=== PATIENT | male | born 1975 | race Caucasian/White ===

== ENCOUNTER 2018-03-22 04:13 | Inpatient (IN) | payer BC, OTHER ==
[2018-03-22 04:34] VITALS: BMI 25.1
--- NOTE | 2018-03-22 04:34 | PDOC ---
History of Present Illness <Felisa Barker - Last Filed: 03/22/18 04:42> - History of Present Illness Initial Comments: 03/22/18 04:49 The patient is a 43 year old male with a history or Brugada's s/p defibrillator placement who presents for evaluation following a syncopal episode. The patient is accompanied by his who assists in providing the history. The patient's notes that the patient had 3 syncopal episodes this evening with head trauma while in the bathroom. She notes that the patient was unresponsive longer than normal prompting their presentation to the ED for evaluation. The patient notes that he was lightheaded at the time, but is denying that any of the events occurred, but notes he does not remember them. He otherwise denies fevers, chills, SOB, chest pain, nausea, vomiting, abdominal pain, or changes with urination or bowel movements. <Mitul Raygoza - Last Filed: 03/22/18 06:30> <Immanuel Vega - Last Filed: 03/22/18 08:10> - General Chief Complaint: Syncope/Near Syncope Stated Complaint: HEART PROBLEM Time Seen by Provider: 03/22/18 04:25 Past History <Felisa Barker - Last Filed: 03/22/18 04:42> - Suicide/Smoking/Psychosocial Hx Smoking Status: No Smoking History: Never smoked Have you smoked in the past 12 months: No Number of Cigarettes Smoked Daily: 0 Information on smoking cessation initiated: No Hx Alcohol Use: No Drug/Substance Use Hx: No Substance Use Type: Alcohol Hx Substance Use Treatment: No <Mitul Raygoza - Last Filed: 03/22/18 06:30> <Immanuel Vega - Last Filed: 03/22/18 08:10> - Past Medical History Allergies/Adverse Reactions: Allergies Allergy/AdvReac Type Severity Reaction Status Date / Time No Known Allergies Allergy Verified 03/22/18 04:29 Home Medications: Ambulatory Orders No Home Medications 0 dose .ROUTE UTDICT 01/16/13 Review of Systems - Review of Systems Comments:: 03/22/18 04:52 Constitutional: No fevers, chills, fatigue, malaise HEENT: No Rhinorrhea, nasal congestion, visual changes Cardiovascular: Syncope. No chest pain, palpitations, lightheadedness Respiratory: No Cough, SOB, Hemoptysis, Gastrointestinal: No Abdominal pain, Nausea, Vomiting, Constipation, Diarrhea, Melena Genitourinary: No Dysuria, Frequency, Urgency, Hesitancy, Hematuria, Flank pain Musculoskeletal: No Myalgia, arthralgia Skin: No rashes, itching, bruising, pallor Neurologic: No Headache, Dizziness, Numbness, Weakness, or Tingling Psychiatric: No Hallucinations. No SI or HI <Mitul Raygoza - Last Filed: 03/22/18 06:30> *Physical Exam - Vital Signs Last Vital Signs Temp Pulse Resp BP Pulse Ox 97.4 F L 71 18 102/65 100 03/22/18 04:29 03/22/18 04:29 03/22/18 04:29 03/22/18 04:29 03/22/18 04:29 <Felisa Barker - Last Filed: 03/22/18 04:42> - Vital Signs Last Vital Signs Temp Pulse Resp BP Pulse Ox 97.4 F L 71 18 102/65 100 03/22/18 04:29 03/22/18 04:29 03/22/18 04:29 03/22/18 04:29 03/22/18 04:29 - Physical Exam Comments: 03/22/18 04:52 General Appearance: Nourished. No Apparent Distress HEENT: EOMI, ELIAN. No Pharyngeal Erythema, Tonsillar Exudate, Tonsillar Erythema Neck: No Cervical Lymphadenopathy Respiratory/Chest: Lungs Clear, Normal Breath Sounds. No Crackles, Rales, Rhonchi, Wheezing Cardiovascular: Regular Rhythm, Regular Rate. No Murmur, Gallops, Rubs Gastrointestinal/Abdominal: Normal Bowel Sounds, Soft. 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 <Mitul Raygoza - Last Filed: 03/22/18 06:30> - Vital Signs Last Vital Signs Temp Pulse Resp BP Pulse Ox 97.4 F L 71 18 102/65 100 03/22/18 04:29 03/22/18 04:29 03/22/18 04:29 03/22/18 04:29 03/22/18 04:29 <SilviaNestormeño - Last Filed: 03/22/18 08:10> Heart Score/ECG Review #1 ECG reviewed & interpreted by me at: 04:53 ([facility] QRS) General ECG Interpretation: Sinus Rhythm, Normal Rate, No acute ischemic changes <Mitul Raygoza - Last Filed: 03/22/18 06:30> ED Treatment Course - LABORATORY CBC & Chemistry Diagram: 03/22/18 04:57 03/22/18 04:57 <Mitul Raygoza - Last Filed: 03/22/18 06:30> - LABORATORY CBC & Chemistry Diagram: 03/22/18 04:57 03/22/18 04:57 - ADDITIONAL ORDERS Additional order review: Laboratory Results 03/22/18 03/22/18 03/22/18 04:57 04:57 04:57 Sodium 136 Potassium 3.5 Chloride 98 Carbon Dioxide 29 Anion Gap 9 BUN 10 D Creatinine 0.9 Creat Clearance w eGFR > 60 Random Glucose 104 Calcium 8.6 Total Bilirubin 0.5 D AST 31 D ALT 44 D Alkaline Phosphatase 61 Creatine Kinase 167 Creatine Kinase Index 3.1 CK-MB (CK-2) 5.19 H Troponin I < 0.02 Total Protein 7.5 Albumin 4.1 Alcohol, Quantitative 22.9 H* 03/22/18 04:57 RBC 5.13 MCV 85.6 MCHC 34.0 RDW 12.9 MPV 8.2 Neutrophils % 55.8 Lymphocytes % 33.3 D Monocytes % 5.6 Eosinophils % 4.1 D Basophils % 1.2 <Immanuel Vega - Last Filed: 03/22/18 08:10> Medical Decision Making - Medical Decision Making 03/22/18 04:53 The patient is a 43 year old male with a history or Brugada's s/p defibrillator placement who presents for evaluation following a syncopal episode. Differential includes but is not limited to: Intracranial process, non-function defibrillator, acs, infectious, metabolic derangement. Given the patient's history and physical exam, we will obtain a cbc, cmp, troponin, ekg, chest plain film and head CT to evaluate further for possible etiologies. It is possible the patient's defibrillator is not functioning properly and the patient will likely require admission for interrogation and further syncope work up. 03/22/18 06:26 CBC, cmp, troponin are unremarkable. Chest plain film is unremarkable. Head CT is unremarkable as preliminarily read by our division operations manager radiologist. We believe the patient requires admission for further monitoring and management. <Mitul Raygoza - Last Filed: 03/22/18 06:30> *DC/Admit/Observation/Transfer <Felisa Barker - Last Filed: 03/22/18 04:42> <Mitul Raygoza - Last Filed: 03/22/18 06:30> <Immanuel Vega - Last Filed: 03/22/18 08:10> Diagnosis at time of Disposition: Syncope Qualifiers: Syncope type: unspecified Qualified Code(s): R55 - Syncope and collapse - Discharge Dispostion Condition at time of disposition: Stable - Referrals Referrals: Eugenia Dominguez [Primary Care Provider] - - Patient Instructions - Post Discharge Activity
--- NOTE | 2018-03-22 04:45 | PDOC ---
Attending Attestation - Resident Resident Name: Mitul Raygoza - ED Attending Attestation I have performed the following: I have examined & evaluated the patient, The case was reviewed & discussed with the resident, I agree w/resident's findings & plan - HPI HPI: 03/22/18 04:43 Pt comes with syncope today. Witnessed by . Pt denies that he injured self, and doesn't admit to syncope. - Physicial Exam PE: 03/22/18 04:44 Agree with resident exam - Medical Decision Making 03/22/18 04:45 Syncope workup. 03/22/18 05:04 Pt will be admitted and his defibrillator can be queried in the AM 03/22/18 05:49 Patient Name: TERRELL OLIVERA THIS IS A PRELIMINARY REPORT FROM [facility] DATE OF SERVICE: 2018-03-22 05:25:58 IMAGES: 141 EXAM: HEAD CT WITHOUT CONTRAST HISTORY: Trauma COMPARISON: None. FINDINGS: The ventricular system is midline and nondilated. The sulcal pattern is normal for the patient's age. There is no bleed, mass, extra-axial fluid collection or mass effect. No skull fracture or skull lesion is identified. The visualized paranasal sinuses and mastoid air cells are clear. IMPRESSION: Normal exam. 03/22/18 06:22 Pt refusing to stay in the ER. Wants to sign AMA. 03/23/18 02:06 Pt ended up agreeing to stay in the hospital and get his defibrillator interrogated. Pt will be signed out to the day team of the ER who will admit him to the hospitalists.
[2018-03-22 05:09] LABS: BASO % 1.2 % (0-2.0); EOS % 4.1 % (0-4.5); HEMATOCRIT 43.9 % (35.4-49); LYMPH % 33.3 % (8-40); MCH 29.1 pg (25.7-33.7); MEAN CELL VOLUME 85.6 fl (80-96); MEAN PLT VOLUME 8.2 fl (7.5-11.1); MONO % 5.6 % (3.8-10.2); NEUT % 55.8 % (42.8-82.8); PLATELET COUNT 203 K/MM3 (134-434); RBC 5.13 M/mm3 (4.00-5.60); RDW 12.9 % (11.9-15.9); WHITE BLOOD COUNT 5.4 K/mm3 (4.0-10.0)
[2018-03-22 05:31] LABS: ALBUMIN 4.1 g/dl (3.4-5.0); ANION GAP 9 (8-16); BLOOD UREA NITROGEN 10 mg/dL (7-18); CALCIUM 8.6 mg/dL (8.5-10.1); CHLORIDE 98 mmol/L (98-107); CO2 29 mmol/L (21-32); CREATININE 0.9 mg/dL (0.7-1.3); GLUCOSE,RANDOM 104 mg/dL (74-106); POTASSIUM 3.5 mmol/L (3.5-5.1); SGOT/AST 31 U/L (15-37); SGPT/ALT 44 U/L (12-78); SODIUM 136 mmol/L (136-145)
[2018-03-22 05:33] LABS: ALK PHOS 61 U/L (45-117); BILIRUBIN,TOTAL 0.5 mg/dL (0.2-1.0); TOT PROT 7.5 g/dl (6.4-8.2)
--- NOTE | 2018-03-22 07:21 | PDOC ---
*Physical Exam - Vital Signs Last Vital Signs Temp Pulse Resp BP Pulse Ox 97.4 F L 71 18 102/65 100 03/22/18 04:29 03/22/18 04:29 03/22/18 04:29 03/22/18 04:29 03/22/18 04:29 - Physical Exam General Appearance: Yes: Nourished Neck: positive: Trachea midline Respiratory/Chest: positive: Lungs Clear, Normal Breath Sounds Cardiovascular: positive: Regular Rhythm, Regular Rate, S1, S2 Gastrointestinal/Abdominal: positive: Normal Bowel Sounds Musculoskeletal: positive: Normal Inspection. negative: CVA Tenderness Extremity: positive: Normal Capillary Refill Integumentary: positive: Normal Color, Dry, Warm Neurologic: positive: bioinformatics programmer II-XII NML intact, Fully Oriented, Alert ED Treatment Course - LABORATORY CBC & Chemistry Diagram: 03/22/18 04:57 03/22/18 04:57 - ADDITIONAL ORDERS Additional order review: Laboratory Results 03/22/18 03/22/18 03/22/18 04:57 04:57 04:57 Sodium 136 Potassium 3.5 Chloride 98 Carbon Dioxide 29 Anion Gap 9 BUN 10 D Creatinine 0.9 Creat Clearance w eGFR > 60 Random Glucose 104 Calcium 8.6 Total Bilirubin 0.5 D AST 31 D ALT 44 D Alkaline Phosphatase 61 Creatine Kinase 167 Creatine Kinase Index 3.1 CK-MB (CK-2) 5.19 H Troponin I < 0.02 Total Protein 7.5 Albumin 4.1 Alcohol, Quantitative 22.9 H* 03/22/18 04:57 RBC 5.13 MCV 85.6 MCHC 34.0 RDW 12.9 MPV 8.2 Neutrophils % 55.8 Lymphocytes % 33.3 D Monocytes % 5.6 Eosinophils % 4.1 D Basophils % 1.2 Medical Decision Making - Medical Decision Making 03/22/18 07:18 pt signed out to me by dr. dove, assumed care of pt at 7am, 43 yo M with h/o pacemaker, brugada syndrome ( placed two years ago). here with c/o syncope x 2. was getting out of bed and syncopized. happened secondtime. reports etoh last night, states may be dehydrated. denies cp or palpitations. 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 on exam awake alert lungs clear bilaterally heart rrr nomrg. abd soft nt nd. skin warm and dry wwp. nuero moves all ext. alert oriented x 3 differential vasovagal dehydration, dysrhtymia, pacer malfunction p marc iv hydration. labs. will require admission for tele obs, interrogtion of pacer. *DC/Admit/Observation/Transfer Diagnosis at time of Disposition: Syncope Qualifiers: Syncope type: unspecified Qualified Code(s): R55 - Syncope and collapse - Discharge Dispostion Condition at time of disposition: Stable - Referrals Referrals: Eugenia Dominguez [Primary Care Provider] - - Patient Instructions - Post Discharge Activity
[2018-03-22] MEDS ORDERED: SODIUM CHLORIDE 0.9% 500 ML INFUS.BAG IV ONE (07:23)
--- NOTE | 2018-03-22 07:42 | PDOC ---
*Physical Exam - Vital Signs Last Vital Signs Temp Pulse Resp BP Pulse Ox 97.4 F L 71 18 102/65 100 03/22/18 04:29 03/22/18 04:29 03/22/18 04:29 03/22/18 04:29 03/22/18 04:29 ED Treatment Course - LABORATORY CBC & Chemistry Diagram: 03/22/18 04:57 03/22/18 04:57 - ADDITIONAL ORDERS Additional order review: Laboratory Results 03/22/18 03/22/18 03/22/18 04:57 04:57 04:57 Sodium 136 Potassium 3.5 Chloride 98 Carbon Dioxide 29 Anion Gap 9 BUN 10 D Creatinine 0.9 Creat Clearance w eGFR > 60 Random Glucose 104 Calcium 8.6 Total Bilirubin 0.5 D AST 31 D ALT 44 D Alkaline Phosphatase 61 Creatine Kinase 167 Creatine Kinase Index 3.1 CK-MB (CK-2) 5.19 H Troponin I < 0.02 Total Protein 7.5 Albumin 4.1 Alcohol, Quantitative 22.9 H* 03/22/18 04:57 RBC 5.13 MCV 85.6 MCHC 34.0 RDW 12.9 MPV 8.2 Neutrophils % 55.8 Lymphocytes % 33.3 D Monocytes % 5.6 Eosinophils % 4.1 D Basophils % 1.2 Medical Decision Making - Medical Decision Making 43 year old male signed out to me with known Brugada and defibrillator in place presenting after two syncopal episodes during which his was concerned for seizure like activity. No bowel/ bladder incontinence. We spoke to Dr. Rinaldi and he is OK tele obs'ing the patient as long as Silver clears them. We spoke to Silver and he would be happy to bring the patient in but requested that we also have [employer] interrogate the ICD in the meantime. Patient admitted tele obs under [facility]. 03/22/18 07:37 *DC/Admit/Observation/Transfer Diagnosis at time of Disposition: Syncope Qualifiers: Syncope type: unspecified Qualified Code(s): R55 - Syncope and collapse - Discharge Dispostion Condition at time of disposition: Stable - Referrals Referrals: Eugenia Dominguez [Primary Care Provider] - - Patient Instructions - Post Discharge Activity
--- NOTE | 2018-03-22 11:13 | CON.CARD ---
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 He had been drinking and felt lightheaded then lost consciousness. The patient denies full LOC and according to the ER notes, his noted jerking movements. He is awaiting tele bed and ICD interrogation. He denies AICD shocks. He has not followed up with EPS since 2016 per EPIC at [facility]. 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 History of Recent Travel: No Home Medications - Allergies Allergies/Adverse Reactions: Allergies Allergy/AdvReac Type Severity Reaction Status Date / Time No Known Allergies Allergy Verified 03/22/18 04:29 - Home Medications Home Medications: Ambulatory Orders No Home Medications 0 dose .ROUTE UTDICT 01/16/13 Family Disease History - Family Disease History Family Disease History: Diabetes: Father, Other: Grandparent (bone cancer), Mother (hyperlipidemia) Vital Signs: Vital Signs Temperature 97.6 F 03/22/18 08:00 Pulse Rate 67 03/22/18 08:00 Respiratory Rate 16 03/22/18 08:00 Blood Pressure 118/67 03/22/18 08:00 O2 Sat by Pulse Oximetry (%) 99 03/22/18 08:00 Constitutional: Yes: Well Nourished, No Distress Eyes: Yes: Conjunctiva Clear, EOM Intact HENT: Yes: Atraumatic, Normocephalic Neck: Yes: Supple, Trachea Midline Respiratory: Yes: CTA Bilaterally Gastrointestinal: Yes: Normal Bowel Sounds, Soft Renal/: Yes: WNL Cardiovascular: Yes: Regular Rate and Rhythm JVD: No Carotid Bruit: No PMI: Non-Displaced Heart Sounds: Yes: S1, S2 Musculoskeletal: Yes: WNL Extremities: Yes: WNL Edema: No Peripheral Pulses WNL: Yes - Other Data Labs, Other Data: CBC, BMP 03/22/18 04:57 03/22/18 04:57 Troponin, BNP 03/22/18 04:57 Troponin I < 0.02 Troponin, BNP 03/22/18 04:57 Troponin I < 0.02 Imaging - Results Chest X-ray: Report Reviewed (la+ICD) Cat Scan: Report Reviewed (normal CTH) EKG: Report Reviewed (nsr rbbb c/w brugada) Problem List - Problems (1) Syncope and collapse Assessment/Plan: The jerking movements are likely myoclonic jerks rather than true seizure activity. Admit telemetry for monitoring. Needs ICD interrogation. If negative would still observe for 24 hours and hydrate. If shock or VT will transfer to [facility]. Code(s): R55 - SYNCOPE AND COLLAPSE
--- NOTE | 2018-03-22 12:14 | HP ---
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 He had been drinking and felt lightheaded then lost consciousness. The patient denies full LOC and according to the ER notes, his noted jerking movements. - Past Medical History Cardiovascular: Yes: Other (BRUGADA SYNDROME). 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 History of Recent Travel: No Home Medications - Allergies Allergies/Adverse Reactions: Allergies Allergy/AdvReac Type Severity Reaction Status Date / Time No Known Allergies Allergy Verified 03/22/18 04:29 - Home Medications Home Medications: Ambulatory Orders No Home Medications 0 dose .ROUTE UTDICT 01/16/13 Family Disease History - Family Disease History Family Disease History: Diabetes: Father, Other: Grandparent (bone cancer), Mother (hyperlipidemia) Physical Examination Vital Signs: Vital Signs Temperature 97.6 F 03/22/18 08:00 Pulse Rate 67 03/22/18 08:00 Respiratory Rate 16 03/22/18 08:00 Blood Pressure 118/67 03/22/18 08:00 O2 Sat by Pulse Oximetry (%) 99 03/22/18 08:00 Cardiovascular: Yes: Regular Rate and Rhythm Respiratory: Yes: Regular, CTA Bilaterally Gastrointestinal: Yes: Normal Bowel Sounds, Soft Edema: No Neurological: Yes: Alert, Oriented Labs: CBC, BMP 03/22/18 04:57 03/22/18 04:57 Problem List - Problems (1) Brugada syndrome Assessment/Plan: =S/P ICD -INTERROGATION Code(s): I49.8 - OTHER SPECIFIED CARDIAC ARRHYTHMIAS (2) Implantable defibrillator reprogramming/check Assessment/Plan: -OBSERVE Code(s): Z45.02 - ENCNTR FOR ADJUST AND MGMT OF AUTOMATIC IMPLNTBL CARD DEFIB (3) Syncope and collapse Assessment/Plan: -TELEMTRY -Cardio Code(s): R55 - SYNCOPE AND COLLAPSE
[2018-03-22 21:35] LABS: ARTERIAL BLD GAS O2 SATURATION 99.2 % (90-98.9); ARTERIAL BLOOD GAS BASE EXCESS 2.8 meq/l (-2-2); ARTERIAL BLOOD GAS PCO2 37.3 mmHg (35-45); ARTERIAL BLOOD GAS pH 7.46 (7.35-7.45)
[2018-03-22 21:49] LABS: ALLENS TEST POSITIVE
[2018-03-23 07:07] LABS: BASO % 0.8 % (0-2.0); EOS % 3.5 % (0-4.5); HEMATOCRIT 40.1 % (35.4-49); HEMOGLOBIN 13.9 GM/dL (11.7-16.9); LYMPH % 29.7 % (8-40); MCHC 34.6 g/dl (32.0-35.9); MEAN CELL VOLUME 86.7 fl (80-96); MEAN PLT VOLUME 8.5 fl (7.5-11.1); MONO % 7.1 % (3.8-10.2); NEUT % 58.9 % (42.8-82.8); PLATELET COUNT 138 K/MM3 (134-434); RBC 4.63 M/mm3 (4.00-5.60); RDW 12.8 % (11.9-15.9); WHITE BLOOD COUNT 5.4 K/mm3 (4.0-10.0)
[2018-03-23 07:42] LABS: ALBUMIN 3.7 g/dl (3.4-5.0); ANION GAP 4 (8-16); BLOOD UREA NITROGEN 9 mg/dL (7-18); CALCIUM 8.3 mg/dL (8.5-10.1); CHLORIDE 107 mmol/L (98-107); CO2 29 mmol/L (21-32); GLUCOSE,RANDOM 93 mg/dL (74-106); POTASSIUM 3.9 mmol/L (3.5-5.1); SGOT/AST 24 U/L (15-37); SODIUM 140 mmol/L (136-145)
[2018-03-23 07:44] LABS: ALK PHOS 53 U/L (45-117); BILIRUBIN,TOTAL 0.6 mg/dL (0.2-1.0); SGPT/ALT 36 U/L (12-78); TOT PROT 6.5 g/dl (6.4-8.2)
[2018-03-23 09:26] VITALS: BP 127/75; PULSE 63; TEMP 98.8
--- NOTE | 2018-03-23 10:48 | DS ---
Physical Examination Vital Signs: Vital Signs Temperature 98.8 F 03/23/18 09:22 Pulse Rate 63 03/23/18 09:22 Respiratory Rate 17 03/23/18 09:22 Blood Pressure 127/75 03/23/18 09:22 O2 Sat by Pulse Oximetry (%) 100 03/23/18 09:00 Cardiovascular: Yes: Regular Rate and Rhythm Respiratory: Yes: Regular, CTA Bilaterally Gastrointestinal: Yes: Normal Bowel Sounds, Soft Labs: CBC, BMP 03/23/18 06:30 03/23/18 06:30 Discharge Summary Reason For Visit: SYNCOPE Current Active Problems Brugada syndrome (Acute) Implantable defibrillator reprogramming/check (Acute) Syncope (Acute) Hospital Course: 43 year old man with a 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 He had been drinking and felt lightheaded then lost consciousness. The patient denies full LOC and according to the ER notes, his noted jerking movements. - Past Medical History Cardiovascular: Yes: Other (BRUGADA SYNDROME). No: HTN, Hyperlipdemia Pulmonary: No: COPD Gastrointestinal: No: Cancer, GI Bleed - Past Surgical History Past Surgical History: Yes: AICD Feels well had interrogation done no further complants syncope may have been due to orthostatic bp will dc home if ok with cardiology Condition: Stable - Instructions Referrals: Eugenia Dominguez [Primary Care Provider] - 1 Week Disposition: HOME - Home Medications Comprehensive Discharge Medication List: Ambulatory Orders No Home Medications 0 dose .ROUTE UTDICT 01/16/13
[2018-03-23 11:34] LABS: CHOLESTEROL 162 mg/dL (50-200); HDL CHOLESTEROL 48 mg/dL (40-60); TRIGLYCERIDES 106 mg/dL (35-160)
--- NOTE | 2018-03-23 12:52 | PN ---
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 He had been drinking and felt lightheaded then lost consciousness. The patient denies full LOC and according to the ER notes, his noted jerking movements. He is awaiting tele bed and ICD interrogation. He denies AICD shocks. He has not followed up with EPS since 2016 per EPIC at [facility]. ICD interrogation was negative. - Objective Vital Signs: Vital Signs Temperature 98.8 F 03/23/18 09:22 Pulse Rate 63 03/23/18 09:22 Respiratory Rate 17 03/23/18 09:22 Blood Pressure 127/75 03/23/18 09:22 O2 Sat by Pulse Oximetry (%) 100 03/23/18 09:00 Constitutional: Yes: No Distress, Calm Eyes: Yes: Conjunctiva Clear, EOM Intact HENT: Yes: Atraumatic, Normocephalic Neck: Yes: Supple, Trachea Midline Cardiovascular: Yes: Regular Rate and Rhythm Respiratory: Yes: CTA Bilaterally Gastrointestinal: Yes: Normal Bowel Sounds, Soft Musculoskeletal: Yes: WNL Extremities: Yes: WNL Edema: No Peripheral Pulses WNL: Yes Labs: CBC, BMP 03/23/18 06:30 03/23/18 06:30 Problem List - Problems (1) Syncope and collapse Assessment/Plan: The jerking movements are likely myoclonic jerks rather than true seizure activity. Admit telemetry for monitoring. Negative ICD interrogation. Stable to DC home, outpatient fu with [facility] pacemaker center. Code(s): R55 - SYNCOPE AND COLLAPSE
--- NOTE | 2018-03-23 22:05 | EKG ---
Test Reason : Blood Pressure : / mmHG Vent. Rate : 064 BPM Atrial Rate : 064 BPM P-R Int : 180 ms QRS Dur : 104 ms QT Int : 376 ms P-R-T Axes : 079 -62 055 degrees QTc Int : 387 ms SINUS RHYTHM WITH MARKED SINUS ARRHYTHMIA INCOMPLETE RIGHT BUNDLE BRANCH BLOCK --POSSIBLE BRUGADA TYPE 1 PATTERN LEFT ANTERIOR FASCICULAR BLOCK JUNCTIONAL ST DEPRESSION, PROBABLY NORMAL ABNORMAL ECG WHEN COMPARED WITH ECG OF 22-MAR-2018 08:48, COMPARED TO EKG NO SIGNIFICANT CHANGE IS FOUND Confirmed by NITZA GAMINO MD ([id number]) on 03/23/2018 10:04:53 PM Referred By: Shakira LEE Confirmed By:NITZA GAMINO MD
--- NOTE | 2018-03-23 22:18 | EKG ---
Test Reason : Blood Pressure : / mmHG Vent. Rate : 070 BPM Atrial Rate : 070 BPM P-R Int : 198 ms QRS Dur : 110 ms QT Int : 384 ms P-R-T Axes : 081 094 056 degrees QTc Int : 414 ms NORMAL SINUS RHYTHM WITH SINUS ARRHYTHMIA RIGHTWARD AXIS INCOMPLETE RIGHT BUNDLE BRANCH BLOCK --CONSIDER BRUGADA TYPE 1 PATTERN BORDERLINE ECG WHEN COMPARED WITH ECG OF 14-MAR-2016 22:27, INCOMPLETE RIGHT BUNDLE BRANCH BLOCK IS NOW PRESENT Confirmed by NITZA GAMINO MD ([id number]) on 03/23/2018 10:17:56 PM Referred By: Confirmed By:NITZA GAMINO MD
--- NOTE | 2018-03-26 11:45 | EKG ---
Test Reason : Blood Pressure : / mmHG Vent. Rate : 059 BPM Atrial Rate : 059 BPM P-R Int : 190 ms QRS Dur : 108 ms QT Int : 388 ms P-R-T Axes : 069 -39 054 degrees QTc Int : 384 ms SINUS BRADYCARDIA LEFT AXIS DEVIATION JUNCTIONAL ST DEPRESSION, PROBABLY NORMAL ABNORMAL ECG WHEN COMPARED WITH ECG OF 14-MAR-2016 22:27, VENT. RATE HAS DECREASED BY 33 BPM Confirmed by HAI EUGENE, LAURA ([id number]) on 03/26/2018 11:45:19 AM Referred By: Confirmed By:LAURA VALLES MD
== END 2018-03-23 15:06 | disposition home or self-care (01) | DRG 312 ==
LOC: JER 04:13 → JERBED 09:12 → OBSVTOIN 12:20 → J4W 17:24
PROVIDERS: ADMIT Family Medicine; ATTEND Family Medicine
DX: R55 Syncope and collapse (principal); I49.8 Other specified cardiac arrhythmias; Z45.02 Encounter for adjustment and management of automatic implantable cardiac defibrillator
CPT/HCPCS: 36415; 36600; 70450-TC; 71046-TC-FY; 80053; 80061; 80307; 82550; 82553; 82803; 83036; 83721; 84439; 84481; 84484; 85025; 93005; 93010; 99285-25; G0378